=== PATIENT | female | born 1970 | race Caucasian/White ===

== ENCOUNTER 2019-03-13 11:05 | Emergency (ER) | payer SELFPAY ==
[~2019-03-13] VITALS: Ht 170.2 cm; Wt 108.9 kg
--- OUTSIDE RECORDS SUMMARY | 2019-03-13 11:20 | XMS REPORT | Referral Summary ---
Author Author [facility] Organization [facility] Address Unknown Phone Unavailable Care Team Providers Care Process Operator Name Role Phone Monica Holder PCP Encounter VC Date(s): 04/22/17 - 04/23/17 [facility] [address] [place] [address] Discharge Disposition: 01-Home or Self Care Attending Physician: Karen Herrera DO Admitting Physician: Milena Mon MD Vital Signs Most recent to 1 oldest [Reference Range]: Temperature Oral 36.5 degC [35.8-37.3 degC] (04/23/17 3:32 PM) Peripheral Pulse 69 bpm Rate [60-100 bpm] (04/23/17 3:32 PM) Heart Rate Monitored 81 bpm [60-100 bpm] (04/22/17 3:00 PM) Respiratory Rate 16 br/min [14-20 br/min] (04/23/17 3:32 PM) Blood Pressure 118/83 mmHg [90-140/60-90 mmHg] (04/23/17 3:32 PM) Mean Arterial 117 mmHg Pressure, Cuff (04/22/17 3:00 PM) SpO2 97 % (04/23/17 3:32 PM) Remote Telemetry Ongoing (04/22/17 8:40 PM) Problem List Condition Effective Dates Status Health Status Informant Acute Active pain(Confirmed) At high risk for Active patient self harm(Confirmed) Bipolar II Active disorder(Confirmed) Alcohol dependence, Active episodic drinking behavior(Confirmed) Watrous III: Active Hypertension(Confirm ed) Watrous III: IBS Active (irritable bowel syndrome)(Confirmed) Mood Active disorder(Confirmed) Obesity(Confirmed) Active Watrous III: Active patient Obesity(Confirmed) Tissue perfusion Active alteration(Confirmed )1 Tubal Active ligation(Confirmed) 1Problem added automatically by system based on initiation of Tissue Perfusion Cerebral Plan of Care Allergies, Adverse Reactions, Alerts Substance Reaction Severity Status Haldol Adverse reaction Medium Active morphine Adverse reaction Medium Active Medications Ambien 5 mg, Oral, Bedtime (once a day), 0 Refill(s) Start Date: 12/07/16 Status: Ordered atorvastatin 10 mg oral tablet 10 mg 1 tabs, Oral, Bedtime (once a day), # 30 tabs, 0 Refill(s) Start Date: 04/23/17 Status: Ordered Coreg 3.125 mg oral tablet 3.125 mg 1 tabs, Oral, BIDWM, # 60 tabs, 0 Refill(s) Start Date: 04/23/17 Status: Ordered ferrous sulfate 325 mg (65 mg elemental iron) oral delayed release tablet 325 mg 1 tabs, Oral, Daily, # 30 tabs, 0 Refill(s) Start Date: 04/23/17 Status: Ordered KlonoPIN 1 mg, Oral, Bedtime (once a day), Anxiety, 0 Refill(s) Start Date: 12/16/15 Status: Ordered lisinopril 5 mg oral tablet 5 mg 1 tabs, Oral, Daily, # 30 tabs, 0 Refill(s) Start Date: 04/23/17 Status: Ordered rivaroxaban 15 mg oral tablet 15 mg 1 tabs, Oral, BIDWM, 15mg BID followed by 20mg daily quantity sufficient f or one month, # 42 tabs, 0 Refill(s) Start Date: 04/23/17 Stop Date: 05/14/17 Status: Ordered Results Hematology Most recent to 1 oldest [Reference Range]: WBC [4.8-10.8 5.4 10*3/uL 10*3/uL] (04/23/17 8:52 AM) RBC [4.00-5.20] 4.45 (04/23/17 8:52 AM) Hgb [12.0-16.0 9.5 gm/dL gm/dL] *LOW* (04/23/17 8:52 AM) Hct [37.0-47.0 %] 31.8 % *LOW* (04/23/17 8:52 AM) MCV [82.0-99.0 fL] 71.5 fL *LOW* (04/23/17 8:52 AM) MCH [27.0-32.0 pg] 21.3 pg *LOW* (04/23/17 8:52 AM) MCHC [32.0-36.0 29.9 gm/dL gm/dL] *LOW* (04/23/17 8:52 AM) RDW [11.5-14.5 %] 16.6 % *HI* (04/23/17 8:52 AM) Platelet [150-400 250 10*3/uL 10*3/uL] (04/23/17 8:52 AM) MPV [9.4-12.4 fL] 9.9 fL (04/23/17 8:52 AM) Immature 0.2 % Granulocytes (04/23/17 8:52 AM) [0.0-1.0 %] Neutrophils [51-75 48 % %] *LOW* (04/23/17 8:52 AM) Lymphocytes [20-46 41 % %] (04/23/17 8:52 AM) Monocytes [4-11 %] 4 % (04/23/17 8:52 AM) Eosinophils [0-4 %] 7 % *HI* (04/23/17 8:52 AM) Basophils [0-2 %] 0 % (04/23/17 8:52 AM) Neutro Absolute 2.56 [1.90-7.00] (04/23/17 8:52 AM) Lymph Absolute 2.21 [0.80-3.30] (04/23/17 8:52 AM) Lamoure Absolute 0.21 [0.30-1.00] *LOW* (04/23/17 8:52 AM) Eos Absolute 0.36 [0.00-0.50] (04/23/17 8:52 AM) Baso Absolute 0.01 [0.00-0.20] (04/23/17 8:52 AM) Hypochrom Occasional *ABN* (04/23/17 8:52 AM) Microcyte Present *ABN* (04/23/17 8:52 AM) Nucleated RBC 0.0 /100 WBC Automated [0 /100 (04/23/17 8:52 AM) WBC] Differential Scanned Slide (04/22/17 10:46 AM) Chemistry Most recent to 1 oldest [Reference Range]: Sodium Lvl [136-144 136 mEq/L mEq/L] (04/23/17 8:52 AM) Potassium Lvl 4.5 mEq/L 1 [3.6-5.1 mEq/L] (04/23/17 8:52 AM) Chloride [99-109 104 mEq/L mEq/L] (04/23/17 8:52 AM) CO2 [22-32 mEq/L] 24 mEq/L (04/23/17 8:52 AM) AGAP [3-20 mEq/L] 8 mEq/L (04/23/17 8:52 AM) BUN [4-20 mg/dL] 13 mg/dL (04/23/17 8:52 AM) Glucose Lvl [70-100 117 mg/dL mg/dL] *HI* (04/23/17 8:52 AM) Creatinine Lvl 0.95 mg/dL [0.44-1.03 mg/dL] (04/23/17 8:52 AM) eGFR [>60 mL/min] >60 mL/min 2 (04/23/17 8:52 AM) Calcium Lvl 8.3 mg/dL [8.6-10.0 mg/dL] *LOW* (04/23/17 8:52 AM) Albumin Lvl [3.5-4.8 3.2 gm/dL gm/dL] *LOW* (04/23/17 8:52 AM) Total Protein 5.9 gm/dL [6.1-7.9 gm/dL] *LOW* (04/23/17 8:52 AM) Globulin [1.9-4.3 2.7 gm/dL gm/dL] (04/23/17 8:52 AM) ALT [14-54 U/L] 17 U/L (04/23/17 8:52 AM) AST [15-41 U/L] 24 U/L (04/23/17 8:52 AM) Alk Phos [26-104 58 U/L U/L] (04/23/17 8:52 AM) Bili Total [0.2-1.2 0.4 mg/dL 3 mg/dL] (04/23/17 8:52 AM) Troponin [<0.06 <0.05 ng/mL ng/mL] (04/22/17 10:46 AM) Chol [0-199 mg/dL] 143 mg/dL (04/23/17 8:52 AM) Trig [0-149 mg/dL] 143 mg/dL (04/23/17 8:52 AM) HDL [40-84 mg/dL] 35 mg/dL *LOW* (04/23/17 8:52 AM) LDL [0-130 mg/dL] 79 mg/dL (04/23/17 8:52 AM) VLDL Cholesterol 29 mg/dL [0-28 mg/dL] *HI* (04/23/17 8:52 AM) Cardiac Risk 4.1 [0.0-5.0] (04/23/17 8:52 AM) Hgb A1c [4.1-5.6 %] 5.7 % *HI* (04/23/17 8:52 AM) eAvg Glucose 116.9 mg/dL (04/23/17 8:52 AM) 1Result Comment: Hemolyzed specimen. The following tests may be affected: ALT, AST, Potassium and Total Bilirubin. 2Result Comment: Multiply eGFR results by 1.21 for race. 3Result Comment: Naproxen, specifically the metabolite O-desmethylnaproxen, may cause spurious elevation in Total Bilirubin levels. Immunizations No data available for this section Procedures Procedure Date Related Diagnosis Body Site Catheterization Left Heart with Coronary 12/07/16 Angiography (Right, Wrist)1 Tubal ligation Tubal ligation Tubal ligation 1auto-populated from documented surgical case Social History Social History Type Response Smoking Status Never smoker Assessment and Plan No data available for this section
--- OUTSIDE RECORDS SUMMARY | 2019-03-13 11:21 | XMS REPORT | Continuity of Care Document ---
Author Organization Unknown Address Unknown Allergies Active Description Code Type Severity Reaction Onset Reported/Identified Relationship to Patient Clinical Status Yes No Allergy Information Drug Allergy N/A N/A 02/24/2013 Yes No Known Allergies Drug Allergy N/A N/A 02/24/2013 Yes No Known Drug Allergies Drug Allergy N/A N/A 02/24/2013 Yes No Known Food Allergies Food Allergy N/A N/A 02/24/2013 Yes HALOPERIDOL 57254 DRUG INGREDI N/A Other 10/02/2015 10/02/2015 Yes MORPHINE 21057 DRUG INGREDI N/A Other 10/02/2015 10/02/2015 Yes haloperidol haloperidol Drug Allergy Unknown HALLUCINATIONS 09/03/2018 Yes morphine morphine Drug Allergy Severe AGITATION/PAIN 09/04/2018 Medications Medication Packaging Start Date Stop Date Route Dosage Sig OLANZAPINE 10 MG PO TBDP 10/02/2015 Sublingual 10 2 TIMES DAILY PRN ALUM T MAG HYDROXIDE-SIMETH 200-200-20 MG/5ML PO SUSP 10/02/2015 Oral 30 4 TIMES DAILY PRN TRAZODONE HCL 100 MG PO TABS 10/02/2015 Oral 100 BEDTIME PRN ACETAMINOPHEN 325 MG PO TABS 10/02/2015 Oral 650 EVERY 6 HOURS PRN ONDANSETRON 4 MG PO TBDP 10/02/2015 Oral 4 EVERY 6 HOURS PRN MAGNESIUM HYDROXIDE 400 MG/5ML PO SUSP 10/02/2015 Oral 30 DAILY PRN PROPRANOLOL HCL 10 MG PO TABS 10/02/2015 Oral 10 2 TIMES DAILY LISINOPRIL 10 MG PO TABS 10/02/2015 Oral 20 NIGHTLY QUETIAPINE FUMARATE 25 MG PO TABS 10/02/2015 Oral 25 2 TIMES DAILY HYDROCHLOROTHIAZIDE 12.5 MG PO CAPS 10/02/2015 Oral 25 DAILY LAMOTRIGINE 100 MG PO TABS 10/02/2015 Oral 200 DAILY SULFAMETHOXAZOLE-TRIMETHOPRIM 800-160 MG PO TABS 10/02/2015 Oral 1 2 TIMES DAILY INFLUENZA VAC SPLIT QUAD 0.5 ML IM AGUSTIN 10/02/2015 Intramuscular 0.5 ONCE ARIPIPRAZOLE 2 MG PO TABS 10/02/2015 Oral 2 DAILY Problems Date Dx Coded Attending Type Code Diagnosis Diagnosed By 02/24/2013 Robb Guerrero MD Final 401.9 HYPERTENSION NOS 02/24/2013 Robb Guerrero MD Final 558.9 NONINF GASTROENT NEC NOS 02/24/2013 Robb Guerrero MD Final 599.0 URINARY TRACT INF NOS 02/24/2013 Robb Guerrero MD Admitting 787.01 NAUSEA W VOMITING 10/02/2015 KABINS, ILEANA B V 789119 Suicidal TEODORESCU, SALOMON H 10/02/2015 KABINS, ILEANA B V [id number] Suicidal TEODORESCU, SALOMON H 10/02/2015 KABINS, ILEANA B V [id number] Suicidal TEODORESCU, SALOMON H 10/02/2015 KABINS, ILEANA B V [id number] Suicidal KABINS, ILEANA B 10/02/2015 KABINS, ILEANA B V [id number] Suicidal KABINS, ILEANA B 10/02/2015 KABINS, ILEANA B V [id number] Suicidal KABINS, ILEANA B 10/02/2015 KABINS, ILEANA B P R45.851 Suicidal ideations KABINS, ILEANA B 10/02/2015 KABINS, ILEANA B V [id number] Suicidal KABINS, ILEANA B 10/02/2015 KABINS, ILEANA B P R45.851 Suicidal ideations KABINS, ILEANA B 10/02/2015 KABINS, ILEANA B V [id number] Suicidal KABINS, ILEANA B 10/02/2015 KABINS, ILEANA B P R45.851 Suicidal ideations KABINS, ILEANA B 10/03/2015 KABINS, ILEANA B V [id number] Suicidal KABINS, ILEANA B 10/03/2015 KABINS, ILEANA B P R45.851 Suicidal ideations KABINS, ILEANA B 10/03/2015 KABINS, ILEANA B V [id number] Suicidal KABINS, ILEANA B 10/03/2015 KABINS, ILEANA B P R45.851 Suicidal ideations KABINS, ILEANA B 10/03/2015 KABINS, ILEANA B V [id number] Suicidal KABINS, ILEANA B 10/03/2015 KABINS, ILEANA B P R45.851 Suicidal ideations KABINS, ILEANA B 10/04/2015 KABINS, ILEANA B V [id number] Suicidal KABINS, ILEANA B 10/04/2015 KABINS, ILEANA B P R45.851 Suicidal ideations KABINS, ILEANA B 10/04/2015 KABINS, ILEANA B V [id number] Suicidal KABINS, ILEANA B 10/04/2015 KABINS, ILEANA B P R45.851 Suicidal ideations KABINS, ILEANA B 10/04/2015 KABINS, ILEANA B V [id number] Suicidal KABINS, ILEANA B 10/04/2015 KABINS, ILEANA B P R45.851 Suicidal ideations KABINS, ILEANA B 10/05/2015 KABINS, ILEANA B V [id number] Suicidal KABINS, ILEANA B 10/05/2015 KABINS, ILEANA B P R45.851 Suicidal ideations KABINS, ILEANA B 10/05/2015 KABINS, ILEANA B V [id number] Suicidal KABINS, ILEANA B 10/05/2015 KABINS, ILEANA B P R45.851 Suicidal ideations KABINS, ILEANA B 10/05/2015 KABINS, ILEANA B V [id number] Suicidal KABINS, ILEANA B 10/05/2015 KABINS, ILEANA B P R45.851 Suicidal ideations KABINS, ILEANA B 09/03/2018 Nadya GUILLERMO, Preet Olea I50.9 HEART FAILURE, UNSPECIFIED 09/03/2018 Nadya GUILLERMO, Preet Olea R07.9 CHEST PAIN, UNSPECIFIED 09/04/2018 Nadya GUILLERMO, Preet Lima E66.01 MORBID (SEVERE) OBESITY DUE TO EXCESS CALORIES 09/04/2018 Nadya GUILLERMO, Preet Lima E78.5 HYPERLIPIDEMIA, UNSPECIFIED 09/04/2018 Preet Covington MD F32.9 MAJOR DEPRESSIVE DISORDER, SINGLE EPISODE, UNSPECI 09/04/2018 Preet Covington MD G47.00 INSOMNIA, UNSPECIFIED 09/04/2018 Preet Covington MD G47.10 HYPERSOMNIA, UNSPECIFIED 09/04/2018 Preet Covington MD G47.30 SLEEP APNEA, UNSPECIFIED 09/04/2018 Preet Covington MD G47.33 OBSTRUCTIVE SLEEP APNEA (ADULT) (PEDIATRIC) 09/04/2018 Preet Covington MD I11.0 HYPERTENSIVE HEART DISEASE WITH HEART FAILURE 09/04/2018 Preet Covington MD I16.0 HYPERTENSIVE URGENCY 09/04/2018 Preet Covington MD I16.1 HYPERTENSIVE EMERGENCY 09/04/2018 Preet Covington MD 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 09/04/2018 Preet Covington MD I25.2 OLD MYOCARDIAL INFARCTION 09/04/2018 Preet Covington MD I27.20 PULMONARY HYPERTENSION, UNSPECIFIED 09/04/2018 Preet Covington MD I44.2 ATRIOVENTRICULAR BLOCK, COMPLETE 09/04/2018 Preet Covington MD I50.32 CHRONIC DIASTOLIC (CONGESTIVE) HEART FAILURE 09/04/2018 Preet Covington MD I50.9 HEART FAILURE, UNSPECIFIED 09/04/2018 Preet Covington MD R07.9 CHEST PAIN, UNSPECIFIED 09/04/2018 Preet Covington MD R73.9 HYPERGLYCEMIA, UNSPECIFIED 09/04/2018 Preet Covington MD Z68.41 BODY MASS INDEX (BMI) 40.0-44.9, ADULT 09/04/2018 Preet Covington MD Z86.711 PERSONAL HISTORY OF PULMONARY EMBOLISM 09/04/2018 Preet Covington MD Z91.14 PATIENT'S OTHER NONCOMPLIANCE WITH MEDICATION EDUARDO Procedures There is no data. Results Test Result Range METABOLIC PANEL, COMPREHN - 09/03/18 21:45 POTASSIUM 3.6 mmol/L 3.5-5.3 EST GFR (MDRD) 53 mL/min > 59 ANION GAP 11 mmol/L 5-15 EST CrCl (CG) > 60 mL/min > 59 GLUCOSE 122 mg/dL 70-99 CALCIUM 8.4 mg/dL 8.5-10.1 BLOOD UREA NITROGEN 16 mg/dL 7-20 CREATININE 1.1 mg/dL 0.6-1.0 SODIUM 140 mmol/L 135-148 CHLORIDE 103 mmol/L 98-110 AST/SGOT 21 Units/L 10-37 ALT/SGPT 29 Units/L < 66 CARBON DIOXIDE 26 mmol/L 21-32 TOTAL PROTEIN 7.6 gm/dL 6.4-8.2 ALBUMIN 3.5 gm/dL 3.4-5.0 BILI TOTAL 0.2 mg/dL 0.0-1.0 ALKALINE PHOSPHATASE TOTAL 85 IU/L 45-117 TROPONIN I - 09/03/18 21:45 TROPONIN I 0.03 ng/mL < 0.07 CBC W/DIFF - 09/03/18 21:45 BASOPHIL # 0.0 k/cumm 0.0-0.2 BASOPHIL % 0.4 % 0-1 EOSINOPHIL # 0.3 k/cumm 0.1-0.5 EOSINOPHIL % 3.1 % 2-4 GRANULOCYTE # 3.9 k/cumm 2.0-9.0 GRANULOCYTE % 48.5 % 50-75 LYMPHOCYTE # 3.5 k/cumm 1.0-4.0 LYMPHOCYTE % 42.4 % 20-30 MEAN CELL HGB 24.5 pg 27.0-33.0 MEAN CELL HGB CONCENTRATION 32.0 g/dL 32.0-37.0 MEAN CELL VOLUME 76.6 fl 80.0-100.0 MONOCYTE # 0.4 k/cumm 0.1-1.0 MONOCYTE % 5.4 % 4-6 MEAN PLATELET VOLUME 11.1 fl 8.5-10.9 RED BLOOD CELL 5.43 m/cumm 4.00-6.00 RED CELL DISTRIBUTION WIDTH 16.3 % 11.0-15.6 WHITE BLOOD CELL 8.1 k/cumm 5.0-10.0 HEMOGLOBIN 13.3 gm/dL 12.0-16.0 HEMATOCRIT 41.6 % 37.0-47.0 NRBC % 0.0 /100 WBC 0.0-0.0 PLATELET COUNT 274 k/cumm 150-400 IMMATURE GRANULOCYTE % 0.2 % 0.0-0.6 IMMATURE GRANULOCYTE # 0.02 k/cumm 0.00-0.09 PROTHROMBIN TIME WITH INR - 09/03/18 21:45 INTERNATIONAL NORMAL RATIO 1.1 0.9-1.1 PROTHROMBIN TIME 12.6 sec 10.0-12.8 URINALYSIS, NO REFLEX CULTURE - 09/04/18 04:03 UA LEUKOCYTE ESTERASE DIPSTICK NEGATIVE NEGATIVE UA NITRITE DIPSTICK NEGATIVE NEGATIVE UA PROTEIN DIPSTICK NEGATIVE NEGATIVE UA GLUCOSE DIPSTICK NEGATIVE NEGATIVE UA KETONE DIPSTICK NEGATIVE NEGATIVE UA UROBILINOGEN DIPSTICK NORMAL NORMAL UA BILIRUBIN DIPSTICK NEGATIVE NEGATIVE UA BLOOD DIPSTICK NEGATIVE NEGATIVE UA SPECIFIC GRAVITY 1.025 1.015-1.025 UR PH 5.0 5.0-7.0 B-TYPE NATRIURETIC PEPTIDE - 09/04/18 04:23 B-TYPE NATRIURETIC PEPTIDE 27 pg/mL < 100 METABOLIC PANEL, BASIC - 09/04/18 04:38 POTASSIUM 3.8 mmol/L 3.5-5.3 EST GFR (MDRD) 59 mL/min > 59 ANION GAP 12 mmol/L 5-15 EST CrCl (CG) > 60 mL/min > 59 GLUCOSE 97 mg/dL 70-99 CALCIUM 8.7 mg/dL 8.5-10.1 BLOOD UREA NITROGEN 14 mg/dL 7-20 CREATININE 1.0 mg/dL 0.6-1.0 SODIUM 142 mmol/L 135-148 CHLORIDE 104 mmol/L 98-110 CARBON DIOXIDE 26 mmol/L 21-32 TROPONIN I - 09/04/18 04:38 TROPONIN I < 0.02 ng/mL < 0.07 HEMOGLOBIN A1C - 09/04/18 04:38 HEMOGLOBIN A1C 5.9 % < 5.7 TSH WITH REFLEX TO FT4 - 09/05/18 03:41 THYROID STIM HORMONE (TSH) 0.43 uIU/mL 0.34-4.82 CBC W/DIFF - 09/05/18 03:46 BASOPHIL # 0.0 k/cumm 0.0-0.2 BASOPHIL % 0.5 % 0-1 EOSINOPHIL # 0.2 k/cumm 0.1-0.5 EOSINOPHIL % 2.2 % 2-4 GRANULOCYTE # 4.1 k/cumm 2.0-9.0 GRANULOCYTE % 48.8 % 50-75 LYMPHOCYTE # 3.5 k/cumm 1.0-4.0 LYMPHOCYTE % 42.2 % 20-30 MEAN CELL HGB 24.6 pg 27.0-33.0 MEAN CELL HGB CONCENTRATION 31.3 g/dL 32.0-37.0 MEAN CELL VOLUME 78.5 fl 80.0-100.0 MONOCYTE # 0.5 k/cumm 0.1-1.0 MONOCYTE % 6.1 % 4-6 MEAN PLATELET VOLUME 10.9 fl 8.5-10.9 RED BLOOD CELL 4.84 m/cumm 4.00-6.00 RED CELL DISTRIBUTION WIDTH 16.3 % 11.0-15.6 WHITE BLOOD CELL 8.4 k/cumm 5.0-10.0 HEMOGLOBIN 11.9 gm/dL 12.0-16.0 HEMATOCRIT 38.0 % 37.0-47.0 NRBC % 0.0 /100 WBC 0.0-0.0 PLATELET COUNT 238 k/cumm 150-400 IMMATURE GRANULOCYTE % 0.2 % 0.0-0.6 IMMATURE GRANULOCYTE # 0.02 k/cumm 0.00-0.09 RENAL FUNCTION PANEL - 09/05/18 03:46 POTASSIUM 3.7 mmol/L 3.5-5.3 EST GFR (MDRD) 48 mL/min > 59 ANION GAP 5 mmol/L 5-15 EST CrCl (CG) > 60 mL/min > 59 GLUCOSE 93 mg/dL 70-99 CALCIUM 8.6 mg/dL 8.5-10.1 BLOOD UREA NITROGEN 16 mg/dL 7-20 CREATININE 1.2 mg/dL 0.6-1.0 SODIUM 138 mmol/L 135-148 CHLORIDE 103 mmol/L 98-110 CARBON DIOXIDE 30 mmol/L 21-32 ALBUMIN 3.2 gm/dL 3.4-5.0 PHOSPHORUS 3.3 mg/dL 2.5-4.9 LIPID PANEL - 09/05/18 03:46 CHOLESTEROL/HDL RATIO 3.7 < 5.0 LDL CHOLESTEROL 66 mg/dL < 100 VLDL CHOLESTEROL 20 mg/dL < 30 TRIGLYCERIDES 102 mg/dL < 150 CHOLESTEROL 118 mg/dL < 200 HDL CHOLESTEROL 32 mg/dL > 39 MAGNESIUM - 09/05/18 03:46 MAGNESIUM 2.1 mg/dL 1.8-2.4 CBC W/DIFF - 09/06/18 05:01 BASOPHIL # 0.0 k/cumm 0.0-0.2 BASOPHIL % 0.4 % 0-1 EOSINOPHIL # 0.2 k/cumm 0.1-0.5 EOSINOPHIL % 2.0 % 2-4 GRANULOCYTE # 4.7 k/cumm 2.0-9.0 GRANULOCYTE % 55.4 % 50-75 LYMPHOCYTE # 3.0 k/cumm 1.0-4.0 LYMPHOCYTE % 35.3 % 20-30 MEAN CELL HGB 24.4 pg 27.0-33.0 MEAN CELL HGB CONCENTRATION 31.0 g/dL 32.0-37.0 MEAN CELL VOLUME 78.7 fl 80.0-100.0 MONOCYTE # 0.6 k/cumm 0.1-1.0 MONOCYTE % 6.7 % 4-6 MEAN PLATELET VOLUME 11.1 fl 8.5-10.9 RED BLOOD CELL 4.88 m/cumm 4.00-6.00 RED CELL DISTRIBUTION WIDTH 15.9 % 11.0-15.6 WHITE BLOOD CELL 8.4 k/cumm 5.0-10.0 HEMOGLOBIN 11.9 gm/dL 12.0-16.0 HEMATOCRIT 38.4 % 37.0-47.0 NRBC % 0.0 /100 WBC 0.0-0.0 PLATELET COUNT 230 k/cumm 150-400 IMMATURE GRANULOCYTE % 0.2 % 0.0-0.6 IMMATURE GRANULOCYTE # 0.02 k/cumm 0.00-0.09 RENAL FUNCTION PANEL - 09/06/18 05:01 POTASSIUM 3.7 mmol/L 3.5-5.3 EST GFR (MDRD) 53 mL/min > 59 ANION GAP 7 mmol/L 5-15 EST CrCl (CG) > 60 mL/min > 59 GLUCOSE 92 mg/dL 70-99 CALCIUM 8.1 mg/dL 8.5-10.1 BLOOD UREA NITROGEN 16 mg/dL 7-20 CREATININE 1.1 mg/dL 0.6-1.0 SODIUM 141 mmol/L 135-148 CHLORIDE 105 mmol/L 98-110 CARBON DIOXIDE 29 mmol/L 21-32 ALBUMIN 3.1 gm/dL 3.4-5.0 PHOSPHORUS 3.6 mg/dL 2.5-4.9 MAGNESIUM - 09/06/18 05:01 MAGNESIUM 2.0 mg/dL 1.8-2.4 Radiology Report from [id number] on 02/24/2013 08:07:00 Final ReportADMITTING DIAGNOSIS: N/V chills abd pain x2 daysCT ABD W W/O,PELVIS W - 02/24/2013 [facility] RESULT: PROCEDURE: CT abdomen with and without contrast, CT pelvis withcontrast.TECHNIQUE: Multiple contiguous axial images were obtainedthrough the abdomen and pelvis after administration ofintravenous contrast. Pre contrast acquisitions were acquiredthrough the abdomen.INDICATION: Abdominal pain.Lung bases are clear. Liver appears normal. Gallbladder ispresent. Spleen is not enlarged. There are no pancreatic masses.Kidneys and adrenals appear normal. There is no intraperitonealfree air. There is a trace amount of free fluid in [id number]. The uterus is present. Adnexa are unremarkable.There is no evidence for appendicitis. There is someinflammation around the terminal ileum. This could be secondaryto an inflammatory bowel disease such as Crohn''s disease.IMPRESSION: There is some inflammatory change, right lowerquadrant, in the region of the ileocecal haley ction. Differentialconsiderations would include Crohn''s disease.Dictated on workstation # [id number] BY: CORBY PERERA M.D., RADIOLOGISTELECTRONICALLY SIGNED BY: CORBY PERERA M.D., RADIOLOGISTD Feb 24 2013 6:30AT TOSH[place] : Feb 24 2013 8:05AS Feb 24 2013 8:05A Radiology Report from [facility] on 09/03/2018 23:16:00 PATIENT NAME: VERENICE LITTLE UNIT NO: [id number] EXAMS: CPT CODE: [id number] CT ANGIOGRAPHY CHEST-PE [id number] REASON FOR EXAM: Chest pain. Shortness of breath. COMPARISON: None. TECHNIQUE: Contrast enhanced helical pulmonary angiogram was obtained per departmental PE protocol; post processed coronal and sagittal reformatted images were also reviewed. 3-D reformations were created on an independent workstation for review. Post-processing, retro- reconstruction, and interpretation of angiographic images of the vessels was performed. FINDINGS: This is a good quality helical CT pulmonary angiogram. There is no acute pulmonary embolism to the subsegmental level branches of the pulmonary artery. The heart is enlarged. The main pulmonary arterial trunk is mildly dilated to 3 cm.. There is no pleural or pericardial effusion. There is no axillary, mediastinal, or hilar adenopathy. Lung windows demonstrate no consolidation, nodules, or other parenchymal abnormality. Osseous structures demonstrate degenerative changes of the thoracic spine. Limited views of the upper abdomen are unremarkable. IMPRESSION: 1. No acute pulmonary embolus. 2. Cardiomegaly. 3. Mild dilatation of the main pulmonary arterial trunk which can be seen with pulmonary arterial hypertension. 4. No focal abnormality seen within the lung. at 2310 Reported and signed by: CHRISTINA HEREDIA MD CC: TECHNOLOGIST: KEON PICKENS TRANSCRIBED DATE/Time: 09/03/2018 2310 BY: BRY EXAM COMPLETE DATE/TIME: [id number] D/TM:09/03/2018 (2316) ED [place] NAME: VERENICE LITTLE [address] [facility] HP: [phone] AGE: 48 S:[address] [place] [address] : 1970 LOC: [facility] PHYS: Lisandro Jean MD PHONE #: [phone] EXAM DATE: 09/03/2018 STATUS: REG ER FAX #: [phone] A#: [id number] U#: [id number] PAGE 1 Signed Report *Final Page* Encounters ACCT No. Visit Date/Time Discharge Status Pt. Type Provider Facility Loc./Unit Complaint [id number] 01/30/2019 15:00:00 01/30/2019 23:59:59 CLS Outpatient [facility] [id number] 09/04/2018 08:33:00 09/06/2018 10:45:00 DIS Inpatient Nadya GUILLERMO, [facility] W.4CS [id number] 11/13/2015 09:29:00 11/13/2015 23:59:59 CLS Outpatient [id number] 02/24/2013 04:35:00 02/25/2013 11:54:00 DIS Inpatient Cesar GUILLERMO, [place] [place] J6E [id number] 10/01/2015 23:59:00 10/05/2015 15:45:00 DIS Inpatient ILEANA WISE [facility] [id number] 10/02/2015 01:07:57 Document Registration
--- OUTSIDE RECORDS SUMMARY | 2019-03-13 11:21 | XMS REPORT | Referral Summary ---
Author Author [facility] Organization [facility] Address Unknown Phone Unavailable Care Team Providers Care Supply Chain Design Manager Name Role Phone Doris Dodge PCP Encounter VC Date(s): 11/27/15 - 11/27/15 [facility] [address], [place] [address] [phone] Discharge Diagnosis: Allergic reaction Discharge Diagnosis: Urticaria Discharge Disposition: 01-Home or Self Care Attending Physician: Clyde Gasca DO Admitting Physician: Clyde Gasca DO Vital Signs Most recent to 1 oldest [Reference Range]: Temperature Oral 36.6 degC [35.8-37.3 degC] (11/27/15 2:40 AM) Peripheral Pulse 80 bpm Rate [60-100 bpm] (11/27/15 3:38 AM) Respiratory Rate 16 br/min [14-20 br/min] (11/27/15 3:38 AM) Blood Pressure 136/85 mmHg [90-140/60-90 mmHg] (11/27/15 3:38 AM) SpO2 97 % (11/27/15 3:38 AM) Problem List Condition Effective Dates Status Health Status Informant Acute Active pain(Confirmed) At high risk for Active patient self harm(Confirmed) Bipolar II Active disorder(Confirmed) [place] III: Active Hypertension(Confirm ed) [place] III: IBS Active (irritable bowel syndrome)(Confirmed) Mood Active disorder(Confirmed) Obesity(Confirmed) Active [place] III: Active patient Obesity(Confirmed) Tubal Active ligation(Confirmed) Allergies, Adverse Reactions, Alerts Substance Reaction Severity Status Haldol Adverse reaction Medium Active morphine Adverse reaction Medium Active Medications hydrochlorothiazide 25 mg oral tablet 25 mg 1 tabs, Oral, Daily, 0 Refill(s) Start Date: 05/30/15 Status: Ordered hydrOXYzine pamoate 100 mg oral capsule 100 mg 1 caps, Oral, Bedtime (once a day), # 30 caps, 0 Refill(s), Indication: I nsomnia Start Date: 06/09/15 Status: Ordered KlonoPIN 1 mg oral tablet 1 mg 1 tabs, Oral, Bedtime (once a day), # 30 tabs, 0 Refill(s), Indication: Bip olar DO Start Date: 06/09/15 Status: Ordered LaMICtal 200 mg oral tablet 200 mg 1 tabs, Oral, Daily, # 30 tabs, 0 Refill(s), Indication: Bipolar Start Date: 05/30/15 Status: Ordered Latuda 40 mg oral tablet 40 mg 1 tabs, Oral, With Dinner, # 30 tabs, 0 Refill(s), Indication: Bipolar DO Start Date: 06/05/15 Status: Ordered lisinopril 20 mg oral tablet 20 mg 1 tabs, Oral, Bedtime (once a day), 0 Refill(s) Start Date: 05/30/15 Status: Ordered ondansetron 4 mg oral tablet 4 mg 1 tabs, Oral, q6hr, Nausea or Vomiting, 0 Refill(s) Start Date: 05/30/15 Status: Ordered predniSONE 50 mg oral tablet 50 mg 1 tabs, Oral, Daily, X 4 days, # 4 tabs, 0 Refill(s) Start Date: 11/27/15 Stop Date: 12/01/15 Status: Ordered propranolol 10 mg oral tablet 10 mg 1 tabs, Oral, BID, 0 Refill(s) Start Date: 05/30/15 Status: Ordered Results No data available for this section Immunizations No data available for this section Procedures Procedure Date Related Diagnosis Body Site Tubal ligation Social History Social History Type Response Smoking Status Never smoker Assessment and Plan No data available for this section
--- OUTSIDE RECORDS SUMMARY | 2019-03-13 11:21 | XMS REPORT | Referral Summary ---
Author Author [facility] Organization [facility] Address Unknown Phone Unavailable Care Team Providers Care Stoker Installation Mechanic Name Role Phone Doris Dodge PCP Encounter VC Date(s): 12/07/16 - 12/10/16 [facility] [address] [place] [address] Discharge Diagnosis: NSTEMI (non-ST elevated myocardial infarction) Discharge Disposition: 01-Home or Self Care Attending Physician: Isra Rodriguez MD Admitting Physician: Zohaib Munoz MD Vital Signs Most recent to 1 oldest [Reference Range]: Temperature Oral 36.8 degC [35.8-37.3 degC] (12/10/16 12:50 PM) Temperature Temporal 36.8 degC Artery [36.3-37.8 (12/09/16 8:45 AM) degC] Peripheral Pulse 88 bpm Rate [60-100 bpm] (12/10/16 12:50 PM) Heart Rate Monitored 85 bpm [60-100 bpm] (12/09/16 9:05 PM) Respiratory Rate 16 br/min [14-20 br/min] (12/10/16 12:50 PM) Blood Pressure 145/88 mmHg [90-140/60-90 mmHg] *HI* (12/10/16 12:50 PM) Mean Arterial 105 mmHg Pressure, Cuff (12/09/16 9:05 PM) SpO2 95 % (12/10/16 12:50 PM) Remote Telemetry Ongoing (12/10/16 7:55 AM) Blood Pressure Left arm Location (12/10/16 12:50 PM) Problem List Condition Effective Dates Status Health Status Informant Acute Active pain(Confirmed) At high risk for Active patient self harm(Confirmed) Bipolar II Active disorder(Confirmed) Alcohol dependence, Active episodic drinking behavior(Confirmed) [place] III: Active Hypertension(Confirm ed) [place] III: IBS Active (irritable bowel syndrome)(Confirmed) Mood Active disorder(Confirmed) Obesity(Confirmed) Active [place] III: Active patient Obesity(Confirmed) Tissue perfusion Active alteration(Confirmed )1 Tubal Active ligation(Confirmed) 1Problem added automatically by system based on initiation of Tissue Perfusion Cerebral Plan of Care Allergies, Adverse Reactions, Alerts Substance Reaction Severity Status Haldol Adverse reaction Medium Active morphine Adverse reaction Medium Active Medications acetaminophen 500 mg, Oral, q6hr, as needed for pain, 0 Refill(s) Start Date: 12/07/16 Status: Ordered Ambien 5 mg, Oral, Bedtime (once a day), 0 Refill(s) Start Date: 12/07/16 Status: Ordered amLODIPine 5 mg oral tablet 5 mg 1 tabs, Oral, Daily, # 30 tabs, 0 Refill(s), Pharmacy: [facility] 10 99, 1 tabs Oral Daily Start Date: 12/10/16 Status: Ordered aspirin 81 mg oral delayed release tablet 81 mg 1 tabs, Oral, Daily, # 30 tabs, 0 Refill(s), Pharmacy: [facility] 1 099, 1 tabs Oral Daily Start Date: 12/10/16 Status: Ordered atorvastatin 20 mg oral tablet 20 mg 1 tabs, Oral, Daily, # 30 tabs, 0 Refill(s) Start Date: 12/10/16 Status: Ordered Coreg 6.25 mg oral tablet 6.25 mg 1 tabs, Oral, BID, # 60 tabs, 0 Refill(s), Pharmacy: [facility] 1 099, 1 tabs Oral BID Start Date: 12/10/16 Status: Ordered ibuprofen 200 mg, Oral, q6hr, as needed for migraine headache, 0 Refill(s) Start Date: 12/07/16 Status: Ordered KlonoPIN 0.5 mg, Oral, BID, Anxiety, 0 Refill(s) Start Date: 12/16/15 Status: Ordered lisinopril-hydrochlorothiazide 20 mg-25 mg oral tablet 1 tabs, Oral, qAM, 0 Refill(s) Start Date: 12/07/16 Status: Ordered ondansetron 4 mg oral tablet 4 mg 1 tabs, Oral, BID, Nausea or Vomiting, 0 Refill(s) Start Date: 05/30/15 Status: Ordered OTC Cough Supressent OTC Cough Supressent, 10 mL, Oral, q8hr, 0 Refill(s) Start Date: 12/07/16 Status: Ordered Plavix 75 mg oral tablet 75 mg 1 tabs, Oral, Daily, # 30 tabs, 0 Refill(s), Pharmacy: [facility] 1 099, 1 tabs Oral Daily Start Date: 12/10/16 Status: Ordered QUEtiapine 25 mg, Oral, qAM, 0 Refill(s) Start Date: 12/07/16 Status: Ordered Results Hematology Most recent to 1 oldest [Reference Range]: WBC [4.8-10.8 7.6 10*3/uL 10*3/uL] (12/09/16 3:27 AM) RBC [4.00-5.20] 4.42 (12/09/16 3:27 AM) Hgb [12.0-16.0 10.3 gm/dL gm/dL] *LOW* (12/09/16 3:27 AM) Hct [37.0-47.0 %] 34.1 % *LOW* (12/09/16 3:27 AM) MCV [82.0-99.0 fL] 77.1 fL *LOW* (12/09/16 3:27 AM) MCH [27.0-32.0 pg] 23.3 pg *LOW* (12/09/16 3:27 AM) MCHC [32.0-36.0 30.2 gm/dL gm/dL] *LOW* (12/09/16 3:27 AM) RDW [11.5-14.5 %] 14.9 % *HI* (12/09/16 3:27 AM) Platelet [150-400 218 10*3/uL 10*3/uL] (12/09/16 3:27 AM) MPV [9.4-12.4 fL] 10.7 fL (12/09/16 3:27 AM) Immature 0.3 % Granulocytes (12/08/16 2:17 AM) [0.0-1.0 %] Neutrophils [51-75 73 % %] (12/08/16 2:17 AM) Lymphocytes [20-46 23 % %] (12/08/16 2:17 AM) Monocytes [4-11 %] 3 % *LOW* (12/08/16 2:17 AM) Eosinophils [0-4 %] 0 % (12/08/16 2:17 AM) Basophils [0-2 %] 0 % (12/08/16 2:17 AM) Neutro Absolute 4.94 [1.90-7.00] (12/08/16 2:17 AM) Lymph Absolute 1.57 [0.80-3.30] (12/08/16 2:17 AM) [place] Absolute 0.21 [0.30-1.00] *LOW* (12/08/16 2:17 AM) Eos Absolute 0.01 [0.00-0.50] (12/08/16 2:17 AM) Baso Absolute 0.01 [0.00-0.20] (12/08/16 2:17 AM) Nucleated RBC 0.0 /100 WBC Automated [0 /100 (12/08/16 2: AM) WBC] Chemistry Most recent to 1 oldest [Reference Range]: Sodium Lvl [136-144 136 mEq/L mEq/L] (12/10/16 6:42 AM) Potassium Lvl 3.9 mEq/L [3.6-5.1 mEq/L] (12/10/16 6:42 AM) Chloride [99-109 102 mEq/L mEq/L] (12/10/16 6:42 AM) CO2 [22-32 mEq/L] 24 mEq/L (12/10/16 6:42 AM) AGAP [3-20] 10 (12/10/16 6:42 AM) BUN [4-20 mg/dL] 11 mg/dL (12/10/16 6:42 AM) Glucose Lvl [70-100 88 mg/dL mg/dL] (12/10/16 6:42 AM) Creatinine Lvl 0.94 mg/dL [0.44-1.03 mg/dL] (12/10/16 6:42 AM) eGFR [>60] >60 1 (12/10/16 6:42 AM) Calcium Lvl 8.5 mg/dL [8.6-10.0 mg/dL] *LOW* (12/10/16 6:42 AM) Albumin Lvl [3.5-4.8 3.0 gm/dL gm/dL] *LOW* (12/10/16 6:42 AM) Total Protein 6.0 gm/dL [6.1-7.9 gm/dL] *LOW* (12/07/16 1:36 PM) Globulin [1.9-4.3 3.1 gm/dL gm/dL] (12/07/16 1:36 PM) ALT [14-54 U/L] 12 U/L *LOW* (12/07/16 1:36 PM) AST [15-41 U/L] 20 U/L (12/07/16 1:36 PM) Alk Phos [26-104 56 U/L U/L] (12/07/16 1:36 PM) Bili Total [0.2-1.2 0.3 mg/dL 2 mg/dL] (12/07/16 1:36 PM) Iron [50-170 mcg/dL] 17 mcg/dL *LOW* (12/07/16 1:36 PM) TIBC [286-569 477 mcg/dL mcg/dL] (12/07/16 1:36 PM) Iron Sat [11-46 %] 4 % *LOW* (12/07/16 1:36 PM) Transferrin [192-382 320 mg/dL mg/dL] (12/07/16 1:36 PM) Ferritin Lvl [11-307 8 ng/mL ng/mL] *LOW* (12/07/16 3:59 PM) Magnesium Lvl 1.9 mg/dL [1.8-2.5 mg/dL] (12/10/16 6:42 AM) Phosphorus [2.4-4.7 3.9 mg/dL 3 mg/dL] (12/10/16 6:42 AM) Troponin [<0.06 21.99 ng/mL 4 ng/mL] *HHI* (12/08/16 2:26 PM) Chol [0-200 mg/dL] 142 mg/dL (12/07/16 1:36 PM) Trig [0-150 mg/dL] 179 mg/dL *HI* (12/07/16 1:36 PM) HDL [>40 mg/dL] 42 mg/dL (12/07/16 1:36 PM) LDL [0-100 mg/dL] 64 mg/dL (12/07/16 1:36 PM) VLDL Cholesterol 36 mg/dL [0-30 mg/dL] *HI* (12/07/16 1:36 PM) Cardiac Risk 3.4 [0.0-5.0] (12/07/16 1:36 PM) TSH with Reflex Free 1.51 T4 [0.35-5.50] (12/07/16 1:36 PM) 1Result Comment: Multiply eGFR results by 1.21 for race. 2Result Comment: Naproxen, specifically the metabolite O-desmethylnaproxen, may cause spurious elevation in Total Bilirubin levels. 3Result Comment: High dosages of liposomal Amphotericin B (AmBisome) therapy or other drug preparations that use a liposomal envelope to facilitate drug delivery may cause falsely elevated results for phosphorus. 4Result Comment: Critical value called, and read-back verified. Called to Lien Hodges RN [facility] 12/08/2016 15:07 Immunizations No data available for this section Procedures Procedure Date Related Diagnosis Body Site Catheterization Left Heart with Coronary 12/07/16 Angiography (Right, Wrist)1 Tubal ligation Tubal ligation 1auto-populated from documented surgical case Social History Social History Type Response Smoking Status Never smoker Assessment and Plan No data available for this section
--- NOTE | 2019-03-13 11:23 | ED Neurological Problem ---
General Stated Complaint: SOB; SLURRED SPEECH, APHASIA Source: patient Exam Limitations: no limitations History of Present Illness Date Seen by Provider: March 13, 2019 Time Seen by Provider: 11:23 Timing/Duration: 1/2 hour Severity: moderate Associated Symptoms: confusion, slurred speech, weakness, other (nausea) Allergies and Home Medications Allergies Coded Allergies: haloperidol (Verified Allergy, Unknown, 03/13/19) Patient Home Medication List Home Medication List Reviewed: Yes Review of Systems Review of Systems Constitutional: see HPI, weakness (on her left) Gastrointestinal: see HPI, nausea : No Psychiatric/Neurological: See HPI, Headache (posterior), Numbness (left sided), Weakness (LUE & LLE), Other (initial confusion and speech difficulties; trouble getting her words out) All Other Systems Reviewed Negative Unless Noted: Yes (Negative excepted noted.) Physical Exam Vital Signs Vital Signs - First Documented 03/13/19 11:10 Temp 99.1 Pulse 107 Resp 24 B/P (MAP) 182/99 (126) Pulse Ox 94 Capillary Refill : Height, Weight, BMI Height: '" Weight: lbs. oz. kg; BMI Method: General Appearance: WD/WN, no apparent distress, obese HEENT: PERRL/EOMI, normal ENT inspection Neck: normal inspection Respiratory: no respiratory distress Cardiovascular: regular rate, rhythm, tachycardia Extremities: normal inspection Neurologic/Psychiatric: alert, oriented x 3 Crainal Nerves: normal hearing, normal speech Motor/Sensory: sensory deficit (mild LUE & LLE), weak motor strength LUE (mild), weak motor strength LLE (mild) Skin: warm/dry Progress/Results/Core Measures Results/Orders Lab Results Laboratory Tests Test 03/13/19 11:18 03/13/19 11:45 03/13/19 11:58 Range/Units White Blood Count 6.5 4.3-11.0 10^3/uL Red Blood Count 5.09 4.35-5.85 10^6/uL Hemoglobin 13.2 11.5-16.0 G/DL Hematocrit 41 35-52 % Mean Corpuscular Volume 80 80-99 FL Mean Corpuscular Hemoglobin 26 25-34 PG Mean Corpuscular Hemoglobin Concent 32 32-36 G/DL Red Cell Distribution Width 14.4 10.0-14.5 % Platelet Count 232 130-400 10^3/uL Mean Platelet Volume 11.6 H 7.4-10.4 FL Neutrophils (%) (Auto) 49 42-75 % Lymphocytes (%) (Auto) 41 12-44 % Monocytes (%) (Auto) 6 0-12 % Eosinophils (%) (Auto) 3 0-10 % Basophils (%) (Auto) 1 0-10 % Neutrophils # (Auto) 3.2 1.8-7.8 X 10^3 Lymphocytes # (Auto) 2.7 1.0-4.0 X 10^3 Monocytes # (Auto) 0.4 0.0-1.0 X 10^3 Eosinophils # (Auto) 0.2 0.0-0.3 10^3/uL Basophils # (Auto) 0.0 0.0-0.1 10^3/uL Prothrombin Time 13.3 12.2-14.7 SEC INR Comment 1.0 0.8-1.4 Activated Partial Thromboplast Time 25 24-35 SEC D-Dimer 0.34 0.00-0.49 UG/ML Sodium Level 141 135-145 MMOL/L Potassium Level 3.9 3.6-5.0 MMOL/L Chloride Level 103 98-107 MMOL/L Carbon Dioxide Level 26 21-32 MMOL/L Anion Gap 12 5-14 MMOL/L Blood Urea Nitrogen 10 7-18 MG/DL Creatinine 1.04 0.60-1.30 MG/DL Estimat Glomerular Filtration Rate 56 BUN/Creatinine Ratio 10 Glucose Level 108 H 70-105 MG/DL Calcium Level 8.9 8.5-10.1 MG/DL Corrected Calcium 8.8 8.5-10.1 MG/DL Magnesium Level 1.9 1.8-2.4 MG/DL Total Bilirubin 0.4 0.1-1.0 MG/DL Aspartate Amino Transf (AST/SGOT) 13 5-34 U/L Alanine Aminotransferase (ALT/SGPT) 13 0-55 U/L Alkaline Phosphatase 81 40-136 U/L Total Protein 7.3 6.4-8.2 GM/DL Albumin 4.1 3.2-4.5 GM/DL Urine Color YELLOW Urine Clarity SL CLOUDY Urine pH 5.5 5-9 Urine Specific [place] >1.030 1.016-1.022 Urine Protein NEGATIVE NEGATIVE Urine Glucose (UA) NEGATIVE NEGATIVE Urine Ketones NEGATIVE NEGATIVE Urine Nitrite NEGATIVE NEGATIVE Urine Bilirubin NEGATIVE NEGATIVE Urine Urobilinogen 0.2 NORMAL MG/DL Urine Leukocyte Esterase 1+ H NEGATIVE Urine RBC (Auto) TRACE H NEGATIVE Urine RBC NONE /HPF Urine WBC 25-50 H /HPF Urine Squamous Epithelial Cells 10-25 H /HPF Urine Crystals NONE /LPF Urine Bacteria MODERATE H /HPF Urine Casts NONE /LPF Urine Mucus MODERATE H /LPF Urine Culture Indicated YES Urine Opiates Screen POSITIVE H NEGATIVE Urine Oxycodone Screen NEGATIVE NEGATIVE Urine Methadone Screen NEGATIVE NEGATIVE Urine Propoxyphene Screen NEGATIVE NEGATIVE Urine Barbiturates Screen NEGATIVE NEGATIVE Ur Tricyclic Antidepressants Screen NEGATIVE NEGATIVE Urine Phencyclidine Screen NEGATIVE NEGATIVE Urine Amphetamines Screen NEGATIVE NEGATIVE Urine Methamphetamines Screen NEGATIVE NEGATIVE Urine Benzodiazepines Screen NEGATIVE NEGATIVE Urine Cocaine Screen NEGATIVE NEGATIVE Urine Cannabinoids Screen NEGATIVE NEGATIVE Glucometer 91 70-110 MG/DL My Orders Orders - BRIAN MAYER DO Cbc With Automated Diff (03/13/19 11:24) Protime With Inr (03/13/19 11:24) Partial Thromboplastin Time (03/13/19 11:24) Comprehensive Metabolic Panel (03/13/19 11:24) Fibrin Degradation Products (03/13/19 11:24) Ua Culture If Indicated (03/13/19 11:24) Chest 1 View Ap/Pa Only (03/13/19 11:24) Ekg Tracing (03/13/19 11:24) Nothing By Mouth (03/13/19 Dinner) Accucheck Stat ONCE (03/13/19 11:24) Ed Iv/Invasive Line Start (03/13/19 11:24) Vital Signs Stroke Patient Q15M (03/13/19 11:24) Ct Head Wo-R/O Stroke (03/13/19 11:24) Monitor-Rhythm Ecg Trace Only (03/13/19 11:24) Dysphagia Screening Tool (03/13/19 11:24) Magnesium (03/13/19 11:24) Drug Screen Stat (Urine) (03/13/19 11:24) Urine Culture (03/13/19 11:45) Aspirin Chewable Tablet (Baby Aspirin Ch (03/13/19 12:30) Vital Signs/I&O 03/13/19 11:10 Temp 99.1 Pulse 107 Resp 24 B/P (MAP) 182/99 (126) Pulse Ox 94 Progress Progress Note : Progress Note Patient symptoms have once again resolved and her NIH is currently 0. Discussed c/ the patient the need to transfer to a facility c/ Neurology and they have requested [facility] in . Arrangement will be made to facilitate the transfer. Initial ECG Impression Date: March 13, 2019 Initial ECG Impression Time: 11:16 Initial ECG Rate: 104 Initial ECG Rhythm: S.Tach Initial ECG Comparisson: No Previous ECG Available Comment Probable left atrial enlargement; Borderline right axis deviation; Borderline T abnormalities, inferior leads. Diagnostic Imaging Diagonstic Imaging: Xray, CT Plain Films/CT/US/NM/MRI: chest (NAD), head (no bleed; nothing acute) Departure Impression Primary Impression: Transient cerebral ischemia Disposition: 02 XFER T-[facility] Transfer Time Spoke to Accepting Phy: 12:23 Transfer Progress Notes Patient discussed c/ the Hospitalist and Neurologist and they have accepted the patient in transfer. Requested the patient receive a full dose of ASA. Transfer Facility: [facility] Method of Transfer: EMS BRIAN MAYER DO March 13, 2019 11:23
[2019-03-13 11:39] LABS: WHITE BLOOD COUNT 6.5 10^3/uL (4.3-11.0)
[2019-03-13 11:40] LABS: BASOPHILS % (AUTO) 1 % (0-10); EOSINOPHILS # (AUTO) 0.2 10^3/uL (0.0-0.3); EOSINOPHILS % (AUTO) 3 % (0-10); HEMATOCRIT 41 % (35-52); HEMOGLOBIN 13.2 G/DL (11.5-16.0); LYMPHOCYTES # (AUTO) 2.7 X 10^3 (1.0-4.0); LYMPHOCYTES % (AUTO) 41 % (12-44); MEAN CORPUSCULAR HEMOGLOBIN 26 PG (25-34); MEAN CORPUSCULAR HGB CONC 32 G/DL (32-36); MEAN CORPUSCULAR VOLUME 80 FL (80-99); MEAN PLATELET VOLUME 11.6 FL (7.4-10.4); MONOCYTES # (AUTO) 0.4 X 10^3 (0.0-1.0); MONOCYTES % (AUTO) 6 % (0-12); NEUTROPHILS # (AUTO) 3.2 X 10^3 (1.8-7.8); NEUTROPHILS % (AUTO) 49 % (42-75); PLATELET COUNT 232 10^3/uL (130-400); RED CELL DISTRIBUTION WIDTH 14.4 % (10.0-14.5)
--- NOTE | 2019-03-13 11:47 | Diagnostic Imaging Report ---
INDICATION: Sudden Onset of confusion, difficulty finding words and weakness. Stroke alert. TECHNIQUE: Single view chest 11:20 AM. CORRELATION STUDY: 06/20/2018 FINDINGS: The heart size, mediastinal configuration and pulmonary vascularity are relatively stable in appearance. The lungs are clear with no consolidating infiltrate. There is no significant effusion or pneumothorax. IMPRESSION: 1. Stable chest demonstrates no acute abnormality. Dictated by: Dictated on workstation # [id number]
[2019-03-13 11:49] LABS: FIBRIN DEGRADATION PRODUCTS 0.34 UG/ML (0.00-0.49); PROTHROMBIN TIME PATIENT 13.3 SEC (12.2-14.7)
[2019-03-13 12:01] LABS: ALBUMIN 4.1 GM/DL (3.2-4.5); BILIRUBIN,TOTAL 0.4 MG/DL (0.1-1.0); CALCIUM 8.9 MG/DL (8.5-10.1); CREATININE SERUM 1.04 MG/DL (0.60-1.30); MAGNESIUM 1.9 MG/DL (1.8-2.4); POTASSIUM 3.9 MMOL/L (3.6-5.0); TOTAL PROTEIN 7.3 GM/DL (6.4-8.2)
--- NOTE | 2019-03-13 12:06 | Diagnostic Imaging Report ---
PROCEDURE: CT head wo r/o stroke. TECHNIQUE: Multiple contiguous axial images were obtained through the brain without the use of intravenous contrast. Auto Exposure Controls were utilized during the CT exam to meet ALARA standards for radiation dose reduction. INDICATION: Acute onset confusion with difficulty finding words as well as weakness. Difficulty with swallowing now with some symptoms of nausea and confusion acute elements began about 30 minutes prior to arrival at the ER. FINDINGS: There is no intracranial hemorrhage there is no hydrocephalus. No sulcal effacement. The basilar cisterns are patent there were no findings suggestive of elevation to the intracranial pressures. The goodrich-white matter differentiations are maintained. The ventricular system nondilated and nondisplaced. There are no abnormal extra-axial fluid collections. The orbits, sinuses and calvarium unremarkable. Impression: No hemorrhage, edema or other acute abnormalities. Report [facility] ER by greer at 12:05 p.m. Dictated by: Dictated on workstation # [id number]
[2019-03-13 12:08] LABS: AMPHETAMINE SCREEN, URINE NEGATIVE (NEGATIVE); BARBITURATE SCREEN URINE NEGATIVE (NEGATIVE); BENZODIAZEPINES SCREEN URINE NEGATIVE (NEGATIVE); CANNABINOID SCREEN, URINE NEGATIVE (NEGATIVE); CLARITY,URINE SL CLOUDY; COCAINE SCREEN URINE NEGATIVE (NEGATIVE); COLOR,URINE YELLOW; METHADONE STAT NEGATIVE (NEGATIVE); METHAMPHETAMINE SCREEN URINE S NEGATIVE (NEGATIVE); OPIATE SCREEN URINE POSITIVE (NEGATIVE); OXYCODONE STAT NEGATIVE (NEGATIVE); PROPOXYPHENE STAT NEGATIVE (NEGATIVE); TRICYCLIC ANTIDEPRESSANTS SCRE NEGATIVE (NEGATIVE)
[2019-03-13 12:09] LABS: BACTERIA,URINE MODERATE /HPF; BILIRUBIN,URINE NEGATIVE (NEGATIVE); GLUCOSE, URINE (UA) NEGATIVE (NEGATIVE); KETONES,URINE NEGATIVE (NEGATIVE); LEUKOCYTE ESTERASE ,URINE 1+ (NEGATIVE); NITRITE,URINE NEGATIVE (NEGATIVE); PH,URINE 5.5 (5-9); PROTEIN,URINE NEGATIVE (NEGATIVE); UROBILINOGEN,URINE 0.2 MG/DL (NORMAL); WBC,URINE 25-50 /HPF
[2019-03-13] MEDS ORDERED: ASPIRIN 81 MG CHEW (CHILDREN'S ASA) PO ONE (12:30)
[2019-03-13 12:53] VITALS: BP 154/112
== END 2019-03-13 13:19 | disposition short-term general hospital (02) ==
LOC: ER FS 11:07
DX: G45.9 Transient cerebral ischemic attack, unspecified (principal); Z88.8 Allergy status to other drugs, medicaments and biological substances
CPT/HCPCS: 36415; 70450; 71045; 80053; 80306; 81000; 82962; 83735; 85025; 85379; 85610; 85730; 87077; 87088; 87186; 93005; 93041